=== PATIENT | male | born 1960 | race African-American/Black ===

== ENCOUNTER 2019-06-09 18:01 | Inpatient (IN) | payer OTHER ==
[~2019-06-09] VITALS: Ht 167.6 cm; Wt 75.3 kg
--- NOTE | ~2019-06-09 | O ---
[facility] [place] [address] OPERATIVE REPORT Name: JAHAIRA LOU Room #: 243-P ADM IN M.R.#: [id number] Admission: 06/09/19 Attend Phys: Sujit Miramontes MD Discharge: Date of : 60 Report #: [id number] THIS REPORT FOR: //name// CC: Sujit Naranjo DATE OF SERVICE: 06/12/2019 PROCEDURE: Removal of an intraaortic counterpulsation aortic balloon pump. INDICATIONS: No need for further support. BRIEF DESCRIPTION OF PROCEDURE: After informed consent was obtained, the balloon pump sutures were cut and removed. Suction was applied to the balloon and maximal contraction was identified. The balloon was then brought into the sheath as far as possible and utilizing steady pressure was then removed with 4 x 4 being utilized superior to the puncture site to obtain hemostasis after bleeding in both directions are permitted. No complications were noted. By: [id number] Thomas Bray MD /nt
[~2019-06-09 18:01] MED LIST: ACETAMINOPHEN325 M1; ALDACTONE25 MG; ASPIR 8181 MG PO; ATORVASTATIN CA40 MG PO; CARVEDILOL3.125 MG; CIPROFLOXACIN500 M1 PO; COREG6.25 MG PO; COUMADIN 5 MG TA5 M1; EFFIENT10 MG; FLOMAX0.4 MG PO; GLUCOPHAGE500 MG; IBUPROFEN 200200 M1; LANTUS; LANTUS100 UNIT/M SUBQ; LISINOPRIL5 MG; LISINOPRIL5 MG PO; METFORMIN HCL500 MG PO; MINIPRIN81 MG; NITROSTAT0.4 MG; NORCO 5-325 TA1 EACH PO; NOVOLOG100 UNIT/1; PRAVASTATIN SOD20 MG; ZOFRAN ODT4 MG PO
[2019-06-09 18:02] VITALS: BP 102/73
[2019-06-09 18:36] VITALS: BP 83/61
[2019-06-09 18:43] LABS: CALCIUM 8.8 mg/dL (8.5-10.1); CREATININE 1.6 mg/dL (0.7-1.3); HEMATOCRIT 49.9 % (42.0-52.0); HEMOGLOBIN 15.5 gm/dL (14.0-18.0); MCH 27.3 pg (26.0-34.0); PLATELET COUNT 225 thou/uL (150-400); POTASSIUM 4.8 mmol/L (3.5-5.1); RBC 5.67 mil/uL (4.50-6.00); WBC 21.4 thou/uL (4.0-11.0)
[2019-06-09 18:50] LABS: TROPONIN-I 0.17 ng/mL (<0.06)
[2019-06-09 19:09] LABS: ABSOLUTE NEUTROPHILS 11.8 thou/uL (1.4-8.2); METAMYELOCYTES 3 %
[2019-06-09 19:24] LABS: BE(vivo) -13.4 mmol/L (-2 to +3); HCO3 12.8 mmol/L (22.0-26.0); PCO2 31.1 mmHg (35.0-45.0); PO2 127.7 mmHg (80.0-100.0); pH 7.231 (7.360-7.450)
--- NOTE | 2019-06-09 22:03 | 2DMMODE ---
[facility] [address] [place] [address] 2 D/M-MODE ECHOCARDIOGRAM Name: JAHAIRA LOU Room #: 243-P ADM IN M.R.#: [id number] Admission: 06/09/19 Attend Phys: Sujit Miramontes MD Discharge: Date of : 60 Date of Service: 06/09/19 2203 Report #: [id number] THIS REPORT FOR: //name// APPROVED REPORT Study performed: 06/09/2019 20:48:31 EXAM: Comprehensive 2D, Doppler, and color-flow Echocardiogram Patient Location: Bedside Room #: 243 Status: stat, on-call BSA: 1.94 HR: 111 bpm BP: 132/94 mmHg Rhythm: Tachycardia Other Information Study Quality: Adequate Risk Factors: Cardiac Risk Factors: HTN Indications Aortic Valve Disease CAD Cardiomyopathy S/P Sudden Cardiac Pt. is on IABP 2D Dimensions IVSd: 11.22 (7-11mm) LVOT Diam: 19.00 (18-24mm) LVDd: 43.67 mm PWd: 10.52 (7-11mm) Ascending Ao: 31.12 (22-36mm) LVDs: 38.93 (25-40mm) Aortic Root: 28.03 mm LV Single Plane 4CH: 38.30 % LV Single Plane 2CH: 38.08 % Biplane EF: 34.4 % Volumes Left Atrial Volume (Systole) Single Plane 4CH: 38.91 mL Single Plane 2CH: 42.43 mL LA ESV Index: 23.00 mL/m2 Aortic Valve [facility] [address] [place] [address] 2 D/M-MODE ECHOCARDIOGRAM Name: JAHAIRA LOU Room #: 243-P [facility] IN ..#: [id number] Admission: 06/09/19 Attend Phys: Sujit Miramontes MD Discharge: Date of : 60 Date of Service: 06/09/19 2203 Report #: [id number] AoV Peak Guero.: 2.96 m/s AO Peak Gr.: 35.13 mmHg LVOT Max P.91 mmHg AO Mean Gr.: 25.91 mmHg LVOT Mean P.83 mmHg AO V2 Mean: 2.51 m/s LVOT Max V: 0.64 m/s AO V2 VTI: 64.73 cm LVOT Mean V: 0.43 m/s CHERELLE (VTI): 0.42 cm2 LVOT V1 VTI: 9.75 cm CHERELLE Vmax: 0.60 cm2 SV (LVOT): 27.02 mL Tricuspid Valve RAP Estimate: 7.00 mmHg Left Ventricle Left ventricle is grossly normal size. There is global hypokinesis of the left ventricle. Borderline concentric left ventricular hypertrophy. Left ventricular systolic function is severely decreased. LVEF is 30-35%. This study is not technically sufficient to allow evaluation of the LV diastolic function. Right Ventricle Right ventricle is mildly dilated. Right ventricle is hypokinetic. Atria The left atrium size is normal. The right atrium size is normal. Aortic Valve Aortic valve is calcified. Peak aortic valve gradient is 35 mmHg and the mean gradient is 26 mmHg. The calculated aortic valve area is 0.6 cm2. at least aortic stenosis. decreased lvef may affect accuracy Mitral Valve There is mitral annular calcification. Trace to mild mitral regurgitation. No evidence of mitral valve stenosis. Tricuspid Valve The tricuspid valve is normal in structure. Trace to mild tricuspid regurgitation. Unable to assess PA pressure. Pulmonic Valve The pulmonary valve is normal in structure. There is no pulmonic valvular regurgitation. [place] [id number] 2 D/M-MODE ECHOCARDIOGRAM Name: JAHAIRA LOU Room #: 243-P ADM IN M.R.#: [id number] Admission: 06/09/19 Attend Phys: Sujit Miramontes MD Discharge: Date of : 60 Date of Service: 06/09/19 220 Report #: [id number] The aortic root is normal in size. The ascending aorta is normal in size. IVC is normal in size and collapses <50% with inspiration. Patient is on a ventilator. Pericardium There is no pericardial effusion. <Conclusion> Left ventricle is grossly normal size. LVEF is 30-35%. There is global hypokinesis of the left ventricle. Right ventricle is mildly dilated. Right ventricle is hypokinetic. Aortic valve is calcified. Peak aortic valve gradient is 35 mmHg and the mean gradient is 26 mmHg. The calculated aortic valve area is 0.6 cm2. at least aortic stenosis. decreased lvef may affect accuracy There is mitral annular calcification. Trace to mild mitral regurgitation. The tricuspid valve is normal in structure. Trace to mild tricuspid regurgitation. Unable to assess PA pressure. The pulmonary valve is normal in structure. There is no pericardial effusion. <ELECTRONICALLY SIGNED> By: Thomas Bray MD 06/09/192202 02 02 Thomas Bray MD /INF
[2019-06-09 22:15] LABS: HCO3 16.5 mmol/L (22.0-26.0); PCO2 38.4 mmHg (35.0-45.0); PO2 78.9 mmHg (80.0-100.0); sO2 93.8 % (92.0-98.0)
[2019-06-09 22:17] LABS: HEMATOCRIT 45.2 % (42.0-52.0); HEMOGLOBIN 14.3 gm/dL (14.0-18.0); MCH 27.1 pg (26.0-34.0); MCHC 31.7 g/dL (28.0-37.0); MCV 85.6 fL (80.0-100.0); RBC 5.28 mil/uL (4.50-6.00); RDW 14.4 % (10.5-14.5); WBC 14.3 thou/uL (4.0-11.0)
[2019-06-09 22:36] LABS: INR 1.1
[2019-06-09 23:29] LABS: ALBUMIN 3.4 g/dL (3.4-5.0); CALCIUM 7.1 mg/dL (8.5-10.1); CREATININE 1.6 mg/dL (0.7-1.3); MAGNESIUM 1.2 mg/dL (1.8-2.4); POTASSIUM 4.3 mmol/L (3.5-5.1); TOTAL PROTEIN 6.5 g/dL (6.4-8.2)
[2019-06-09 23:41] LABS: TOTAL BILIRUBIN 1.3 mg/dL (<0.1-1.0)
[2019-06-10] VITALS (10 sets, daily range): BP systolic 123–137; BP diastolic 66–89
[2019-06-10 00:11] LABS: FIBRINOGEN 195.4 mg/dL (210-360)
[2019-06-10 00:19] LABS: D-DIMER 26.68 ug/mLFEU (0.19-0.50)
[2019-06-10 05:28] LABS: BE(vivo) -11.7 mmol/L (-2 to +3); HCO3 17.3 mmol/L (22.0-26.0); PCO2 50.7 mmHg (35.0-45.0); PO2 99.1 mmHg (80.0-100.0); sO2 95.5 % (92.0-98.0)
[2019-06-10 05:44] LABS: ABSOLUTE NEUTROPHILS 11.5 thou/uL (1.4-8.2); BASOPHILS 0.2 % (0.0-2.0); EOSINOPHILS 0.1 % (0.0-3.0); HEMATOCRIT 42.7 % (42.0-52.0); HEMOGLOBIN 13.5 gm/dL (14.0-18.0); LYMPHOCYTES 16.9 % (24.0-44.0); MCHC 31.7 g/dL (28.0-37.0); MCV 85.2 fL (80.0-100.0); MONOCYTES 4.4 % (1.0-8.0); PLATELET COUNT 193 thou/uL (150-400); POLYS 78.4 % (36.0-66.0); RBC 5.01 mil/uL (4.50-6.00); RDW 14.7 % (10.5-14.5); WBC 14.7 thou/uL (4.0-11.0)
[2019-06-10 05:49] LABS: INR 1.1
[2019-06-10 05:51] LABS: APTT 82.1 Seconds (24.5-32.8); CALCIUM 7.3 mg/dL (8.5-10.1); CREATININE 2.1 mg/dL (0.7-1.3); MAGNESIUM 2.5 mg/dL (1.8-2.4)
[2019-06-10 05:53] LABS: POTASSIUM 2.8 mmol/L (3.5-5.1); TROPONIN-I 23.74 ng/mL (<0.06)
[2019-06-10 07:57] LABS: BE(vivo) -7.7 mmol/L (-2 to +3); HCO3 19.2 mmol/L (22.0-26.0); PCO2 44.1 mmHg (35.0-45.0); PO2 180.2 mmHg (80.0-100.0)
[2019-06-10 08:02] LABS: pH 7.257 (7.360-7.450)
--- NOTE | 2019-06-10 09:30 | EKG ---
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: : 1960 Requested By: Elliott Walker Order Number: [id number] MD: Warren Luu Measurements Intervals [place]ont Rate: 102 P: 63 VT: 184 QRS: 68 QRSD: 147 T: 79 QT: 351 QTc: 458 Interpretive Statements Sinus tachycardia Inferior and lateral injury pattern Poor R wave progression Compared to ECG 05/25/2011 07:35:38 ST segment elevation is similar Electronically Signed On 06-10-2019 9:30:11 CDT by Warren Luu [email or web address] <ELECTRONICALLY SIGNED> By: Warren Luu MD, [facility] 06/10/19 0930 00 00 Warren Luu MD, [facility] /EPI
[2019-06-10 12:20] LABS: ABSOLUTE NEUTROPHILS 12.3 thou/uL (1.4-8.2); BASOPHILS 0.8 % (0.0-2.0); HEMATOCRIT 41.3 % (42.0-52.0); HEMOGLOBIN 13.5 gm/dL (14.0-18.0); LYMPHOCYTES 13.6 % (24.0-44.0); MCH 27.5 pg (26.0-34.0); MCHC 32.7 g/dL (28.0-37.0); MCV 83.9 fL (80.0-100.0); MONOCYTES 5.2 % (1.0-8.0); PLATELET COUNT 172 thou/uL (150-400); POLYS 80.4 % (36.0-66.0); RBC 4.93 mil/uL (4.50-6.00); RDW 14.2 % (10.5-14.5); WBC 15.3 thou/uL (4.0-11.0)
[2019-06-10 12:27] LABS: INR 1.1; PROTIME 11.4 Seconds (9.3-11.4)
[2019-06-10 12:30] LABS: CALCIUM 7.4 mg/dL (8.5-10.1); CREATININE 2.1 mg/dL (0.7-1.3); MAGNESIUM 2.3 mg/dL (1.8-2.4)
[2019-06-10 12:33] LABS: TROPONIN-I 21.36 ng/mL (<0.06)
[2019-06-10 12:44] LABS: APTT 104.2 Seconds (24.5-32.8)
[2019-06-10 18:53] LABS: ABSOLUTE NEUTROPHILS 10.6 thou/uL (1.4-8.2); BASOPHILS 0.2 % (0.0-2.0); EOSINOPHILS 0.1 % (0.0-3.0); HEMOGLOBIN 13.1 gm/dL (14.0-18.0); MCH 27.3 pg (26.0-34.0); MCHC 32.9 g/dL (28.0-37.0); MCV 83.1 fL (80.0-100.0); MONOCYTES 5.7 % (1.0-8.0); PLATELET COUNT 143 thou/uL (150-400); RBC 4.81 mil/uL (4.50-6.00); RDW 14.6 % (10.5-14.5)
[2019-06-10 19:05] LABS: CALCIUM 7.5 mg/dL (8.5-10.1); MAGNESIUM 2.2 mg/dL (1.8-2.4)
[2019-06-10 19:06] LABS: POTASSIUM 2.4 mmol/L (3.5-5.1); TROPONIN-I 14.37 ng/mL (<0.06)
[2019-06-10 19:13] LABS: APTT 74.5 Seconds (24.5-32.8); INR 1.1; PROTIME 11.4 Seconds (9.3-11.4)
[2019-06-11 05:21] LABS: BE(vivo) -3.7 mmol/L (-2 to +3); HCO3 18.1 mmol/L (22.0-26.0); PCO2 24.7 mmHg (35.0-45.0); pH 7.483 (7.360-7.450); sO2 99.6 % (92.0-98.0)
[2019-06-11 05:23] LABS: HEMATOCRIT 37.1 % (42.0-52.0); HEMOGLOBIN 12.5 gm/dL (14.0-18.0); MCH 27.8 pg (26.0-34.0); MCHC 33.7 g/dL (28.0-37.0); MCV 82.5 fL (80.0-100.0); RBC 4.49 mil/uL (4.50-6.00); RDW 14.4 % (10.5-14.5); WBC 10.5 thou/uL (4.0-11.0)
[2019-06-11 05:29] LABS: CALCIUM 7.4 mg/dL (8.5-10.1); CREATININE 1.8 mg/dL (0.7-1.3); POTASSIUM 4.9 mmol/L (3.5-5.1)
[2019-06-11 07:41] LABS: ALBUMIN 2.8 g/dL (3.4-5.0); DIRECT BILIRUBIN 0.5 mg/dL (<0.1-0.3); TOTAL BILIRUBIN 1.8 mg/dL (<0.1-1.0); TOTAL PROTEIN 5.2 g/dL (6.4-8.2)
[2019-06-11 07:47] LABS: APTT 79.7 Seconds (24.5-32.8); D-DIMER 2.08 ug/mLFEU (0.19-0.50)
[2019-06-11 07:54] LABS: ABSOLUTE RETIC COUNT 0.0462 10^6/uL; OBSERVED RETIC COUNT 1.03 % (0.6-2.6)
[2019-06-11 14:28] LABS: INR 1.2; PROTIME 12.2 Seconds (9.3-11.4)
[2019-06-11 14:29] LABS: APTT 41.4 Seconds (24.5-32.8)
[2019-06-12] VITALS (11 sets, daily range): BP systolic 124–154; BP diastolic 87–115
[2019-06-12 05:40] LABS: HEMATOCRIT 32.8 % (42.0-52.0); HEMOGLOBIN 10.9 gm/dL (14.0-18.0); MCH 27.5 pg (26.0-34.0); MCHC 33.2 g/dL (28.0-37.0); RBC 3.95 mil/uL (4.50-6.00); RDW 14.7 % (10.5-14.5); WBC 10.8 thou/uL (4.0-11.0)
[2019-06-12 06:02] LABS: CALCIUM 7.3 mg/dL (8.5-10.1); CREATININE 1.6 mg/dL (0.7-1.3)
--- NOTE | 2019-06-12 15:14 | CATHLAB ---
[facility] [address] [address] INVASIVE PROCEDURE REPORT Name: JAHAIRA LOU Room #: 243-P ADM IN M.R.#: [id number] Admission: 06/09/19 Attend Phys: Sujit Miramontes MD Discharge: Date of : 60 Date of Service: 06/12/19 1513 Report #: [id number] THIS REPORT FOR: //name// APPROVED REPORT Study performed: 06/09/2019 18:30:28 Patient Details Patient Status: ED Room #: The patient is a 58 year-old male Event Personnel Thomas Bray Refuse And Recycling Worker, Claudio Simpson RN RN, Alexandrea Garcia RTR, COMIC ILLUSTRATOR Monitor, Sameer Richards RTR Scrub Procedures Performed Art Access - R femoral artery* Carlo Access - R femoral vein Coronary Angiography Only [id number] [place] IABP Placement 1006855 IABPI, supervision of a cardiac arrest" code" Indication Arrhythmia, STEMI (>0 to less than or equal to 6 hours) Risk Factors Coronary Artery DiseaseHypertension, Diabetes Procedure Narrative The Right Groin^ was infiltrated with 1% Lidocaine subcutaneous anesthesia. A PINNACLE 6FR Sheath #[id number] sheath was inserted into the RFA. Coronary angiography was performed using coronary diagnostic catheters. The right coronary system was accessed and visualized with a LAUNCHER 6FR JR 4 #[id number] catheter. The left coronary system was accessed and visualized with a JL4 catheter. 8FR 40CC INTRA-AORTIC BALLOON PUMP INTRODUCED THROUGH RIGHT FEMORAL ARTERY Intraoperative Conscious Sedation No sedation given. Fluoro Time: 9.16 minutes Dose: DAP 7660.80 cGycm2 930 mGy Contrast Type and Amount: Omnipaque 50 ml Coronary Angiography The patient's coronary anatomy is right dominant. [facility] [address] [place] [address] INVASIVE PROCEDURE REPORT Name: JAHAIRA LOU Room #: [facility] IN M.R.#: [id number] Admission: 06/09/19 Attend Phys: Sujit Miramontes MD Discharge: Date of : 60 Date of Service: 06/12/19 1513 Report #: [id number] Diagnostic Cath Left Main Large calibered normal origin and tapers rapidly and bifurcates left anterior descending left circumflex and the distal taper is eccentric of under 50%. There is evidence of significant calcification LAD Diminutive caliber type II vessel has at least moderate proximal lesions noted. He has diffuse disease as it courses towards the apex in the anterior interventricular sulcus. No high-grade obstructive lesions are noted. Diagonal 1 Moderate caliber vessel coursing on the anterolateral wall with intraluminal irregularities noted without high-grade obstructive lesions but the entire vessel clearly has diffuse disease Circumflex Diminutive caliber vessel heavily calcified proximally. Numerous locations within the circumflex proper and first marginal branch with have high-grade lesions. The vessels unfortunately are less than 1 mm in diameter in closer to half a millimeter in diameter. OM1 Diminutive vessel diffusely diseased with focal high-grade lesions noted. The vessel is less than 1 mm in diameter Right Coronary Total chronic occlusion proximally with distal posterior circulation fed via left to right collaterals Left Ventriculography Left Ventriculography was not performed. Hemodynamics The aortic pressure is 96/59 mmHg with a mean of 75 mmHg. PCI Technique Lesion Percutaneous coronary intervention was performed on the proximal right coronary artery. A LAUNCHER 6FR JR 4 #[id number] Guide Catheter was used to engage the ostium. A Luge Wire (J) .014 X 182CM #[id number] Interventional Guidewire was used to cross the lesion. BALLOON DILATION Unable to cross lesion with .014 Luge (J) wire; Unable to cross lesion with .014 BMW 190cm wire; Unable to cross lesion with .014 Whisper wire 190cm; Unable to cross lesion with .014 Intuition 300cm wire Conclusion 1. Cardiogenic shock with severe diffuse disease involving a totally occluded RCA and at least moderate lesions in the LAD and left circumflex [facility] [address] [place] [address] INVASIVE PROCEDURE REPORT Name: JAHAIRA LOU Room #: 243-P [facility] IN M.R.#: [id number] Admission: 06/09/19 Attend Phys: Sujit Miramontes MD Discharge: Date of : 60 Date of Service: 06/12/19 1513 Report #: [id number] 2. Abnormal hemodynamics with need for catecholamine pressor support and CPR through out the case 3. Successful insertion of an intra-aortic balloon pump with augmentation to 105-110 mmHg Recommendations Continue current pressors and support. Consult neurology for neurologic status. <ELECTRONICALLY SIGNED> By: Thomas Bray MD 06/12/19 1513 1513 1513 Thomas Bray MD /INF
[2019-06-13] VITALS (24 sets, daily range): BP systolic 100–140; BP diastolic 69–117
[2019-06-13 05:23] LABS: HEMATOCRIT 31.4 % (42.0-52.0); HEMOGLOBIN 10.5 gm/dL (14.0-18.0); MCH 27.8 pg (26.0-34.0); MCHC 33.3 g/dL (28.0-37.0); MCV 83.4 fL (80.0-100.0); RBC 3.77 mil/uL (4.50-6.00); RDW 14.8 % (10.5-14.5); WBC 10.7 thou/uL (4.0-11.0)
[2019-06-13 05:31] LABS: CALCIUM 7.9 mg/dL (8.5-10.1); CREATININE 1.5 mg/dL (0.7-1.3); POTASSIUM 5.5 mmol/L (3.5-5.1)
[2019-06-13 13:47] LABS: BE(vivo) -6.3 mmol/L (-2 to +3); HCO3 17.4 mmol/L (22.0-26.0); PCO2 28.9 mmHg (35.0-45.0); PO2 56.8 mmHg (80.0-100.0); pH 7.398 (7.360-7.450); sO2 90.1 % (92.0-98.0)
[2019-06-14] VITALS (23 sets, daily range): BP systolic 98–136; BP diastolic 71–105
[2019-06-14 05:17] LABS: BE(vivo) -8.9 mmol/L (-2 to +3); HCO3 15.7 mmol/L (22.0-26.0); PO2 100.5 mmHg (80.0-100.0); pH 7.337 (7.360-7.450); sO2 97.3 % (92.0-98.0)
[2019-06-14 05:47] LABS: HEMATOCRIT 31.5 % (42.0-52.0); HEMOGLOBIN 10.4 gm/dL (14.0-18.0); MCH 27.7 pg (26.0-34.0); MCV 84.1 fL (80.0-100.0); RBC 3.75 mil/uL (4.50-6.00); RDW 14.7 % (10.5-14.5); WBC 10.2 thou/uL (4.0-11.0)
[2019-06-14 06:05] LABS: ALBUMIN 2.6 g/dL (3.4-5.0); CALCIUM 8.2 mg/dL (8.5-10.1); CREATININE 1.4 mg/dL (0.7-1.3); POTASSIUM 4.9 mmol/L (3.5-5.1); TOTAL BILIRUBIN 1.3 mg/dL (<0.1-1.0)
[2019-06-14 09:18] LABS: URINE BLOOD 3+ (Negative); URINE CLARITY CLEAR; URINE COLOR YELLOW; URINE GLUCOSE-RANDOM* NEGATIVE (Negative); URINE KETONES 3+ (Negative); URINE LEUKOCYTES NEGATIVE (Negative); URINE NITRITE NEGATIVE (Negative); URINE PROTEIN (DIPSTICK) 1+ (Negative); URINE SPECIFIC GRAVITY >= 1.030 (1.005-1.035); URINE UROBILINOGEN 0.2 E.U./dl (0.2-1.0)
[2019-06-14 09:22] LABS: ICTOTEST (BILI CONFIRMATORY) Negative (Negative); URINE BILIRUBIN NEGATIVE (Negative)
[2019-06-14 09:24] LABS: SQUAMOUS None Seen /LPF (0-3); URINE RBC >20 Many /HPF (0-2); URINE WBC 0-5 Rare /HPF (0-5)
[2019-06-14 09:25] LABS: CASTS None Seen /LPF (None Seen); CRYSTALS None Seen /LPF (None Seen)
[2019-06-15] VITALS (23 sets, daily range): BP systolic 108–132; BP diastolic 65–88
[2019-06-15 05:17] LABS: BE(vivo) -8.3 mmol/L (-2 to +3); HCO3 15.6 mmol/L (22.0-26.0); PCO2 27.4 mmHg (35.0-45.0); PO2 85.8 mmHg (80.0-100.0); pH 7.374 (7.360-7.450)
[2019-06-15 05:18] LABS: sO2 96.5 % (92.0-98.0)
[2019-06-15 05:30] LABS: HEMATOCRIT 27.5 % (42.0-52.0); HEMOGLOBIN 9.4 gm/dL (14.0-18.0); MCH 28.6 pg (26.0-34.0); MCHC 34.3 g/dL (28.0-37.0); MCV 83.4 fL (80.0-100.0); RBC 3.3 mil/uL (4.50-6.00); RDW 14.9 % (10.5-14.5); WBC 8.4 thou/uL (4.0-11.0)
[2019-06-15 05:43] LABS: CALCIUM 8.9 mg/dL (8.5-10.1); CREATININE 1.3 mg/dL (0.7-1.3); POTASSIUM 4.7 mmol/L (3.5-5.1)
[2019-06-16] VITALS (23 sets, daily range): BP systolic 111–150; BP diastolic 64–96
[2019-06-16 04:17] LABS: ABSOLUTE NEUTROPHILS 8.4 thou/uL (1.4-8.2); BASOPHILS 0.6 % (0.0-2.0); EOSINOPHILS 2.7 % (0.0-3.0); HEMATOCRIT 26.5 % (42.0-52.0); LYMPHOCYTES 8.7 % (24.0-44.0); MCH 28.3 pg (26.0-34.0); MCHC 33.9 g/dL (28.0-37.0); MCV 83.6 fL (80.0-100.0); MONOCYTES 6.2 % (1.0-8.0); PLATELET COUNT 223 thou/uL (150-400); POLYS 81.8 % (36.0-66.0); RBC 3.17 mil/uL (4.50-6.00); RDW 14.7 % (10.5-14.5); WBC 10.3 thou/uL (4.0-11.0)
[2019-06-16 04:26] LABS: CALCIUM 9.1 mg/dL (8.5-10.1); CREATININE 1.3 mg/dL (0.7-1.3); POTASSIUM 4.4 mmol/L (3.5-5.1)
[2019-06-16 04:45] LABS: BE(vivo) -3.1 mmol/L (-2 to +3); HCO3 20.3 mmol/L (22.0-26.0); PCO2 30.7 mmHg (35.0-45.0); PO2 147.4 mmHg (80.0-100.0); pH 7.438 (7.360-7.450)
--- NOTE | 2019-06-16 12:44 | HC ---
[facility] [address] [place] [address] CONSULTATION Name: JAHAIRA LOU Room #: 243-P ADM IN M.R.#: [id number] Admission: 06/09/19 Attend Phys: Sujit Miramontes MD Discharge: Date of : 60 Report #: [id number] THIS REPORT FOR: //name// CC: Sujit Naranjo DATE OF SERVICE: 06/15/2019 INFECTIOUS DISEASE CONSULTATION REASON FOR CONSULTATION: I was asked to evaluate concerning fever post-cardiac arrest. HISTORY OF PRESENT ILLNESS: The patient is a 58 year old with underlying history of coronary artery disease, hypertension, hyperlipidemia and diabetes, who presents to the Emergency Room on 06/09/2019 after being found down in his driveway by his family. Unknown how long he had been down. EMS was called and he was found to be in ventricular fibrillation. He was resuscitated. He was found to have a STEMI and was taken to the recyclable materials distributor. While in the lab, he had further cardiac arrest and required vasopressors and intraaortic balloon pump. He was placed on the hypothermic protocol. He did have episode of seizure. No intervention was able to be performed on his coronary arteries. He had multiple stents already in place and a chronically occluded RCA. Subsequently, he remains on the ventilator now down to 40%. Moderate amount of tracheal secretions. Has developed a progressive right lower lobe infiltrate. Sputum cultures have revealed methicillin-susceptible Staph aureus. Blood cultures have remained negative. He has had no further seizure activity. He has had a significant anoxic encephalopathy as noted on his EEG. CT scan has showed no localizing cerebral infarct. The patient has central venous catheter in place. He has an indwelling Cedeno catheter in place. He is now on cooling blanket for temperature up to 101.5 degrees. Leading up to this event, he was feeling well and was very active, worked on a daily basis. ALLERGIES: None known. MEDICATIONS: As noted on his MAR including vancomycin and Zosyn. Other medications as noted on his MAR. PAST MEDICAL AND SURGICAL HISTORY: Diabetes, coronary artery disease, hypertension, coronary stents, chronic lung disease, COPD, hyperlipidemia, herniorrhaphy, and tonsillectomy. SOCIAL HISTORY: He is a nonsmoker, no significant alcohol intake currently. Previously was a significant drinker. No known HIV risk factors. No [facility] [address] [place] [address] CONSULTATION Name: JAHAIRA LOU Room #: [address] [place] [address] IN .R.#: [id number] Admission: 06/09/19 Attend Phys: Sujit Miramontes MD Discharge: Date of : 60 Report #: [id number] tuberculosis exposure. REVIEW OF SYSTEMS: 10-point review of systems is negative other than what has been described above. PHYSICAL EXAMINATION: VITAL SIGNS: Temperature is now normal. Vital signs were stable, on FiO2 of 40%, he was unresponsive. Pupils are equal, round and reactive to light. He did have a gag reflex. Unable to move his extremities. He did withdraw to pain. SKIN: With bruising to both knees. No palpable adenopathy. EYES: Without scleral icterus. MOUTH: Without mucositis. Orally intubated. NECK: Supple. LUNGS: Coarse breath sounds in the right posterior base. HEART: Regular without appreciable murmur, gallop or rub. ABDOMEN: Soft, nontender, no hepatosplenomegaly or mass. GENITOURINARY: External genitalia without lesion, had indwelling Cedeno catheter. RECTAL: Not performed. NEUROLOGIC: As noted above with associated encephalopathy. LABORATORY STUDIES: Sodium 140, potassium 4.7, creatinine 1.3, bicarbonate of 18. Hemoglobin 9.4, WBC 8.4, platelet count 156,000. Chest x-ray with right lower lobe infiltrate. Liver function tests, bilirubin 1.3, ALT 91. Urinalysis, rbc's and bacteria. Blood cultures negative to date. CT of the head showed left maxillary sinusitis. IMPRESSION: 1. 58 year old status post out of hospital cardiac arrest, now 6 days into his resuscitation. Has fever, source of which would include pneumonia versus urinary tract infection versus drug versus central due to his anoxic encephalopathy. 2. Acute hypoxic respiratory failure status post cardiac arrest VFib. 3. Seizure. 4. Coronary artery disease. 5. Metabolic acidosis 6. Acute kidney injury, improved. 7. Shock liver, improved. RECOMMENDATIONS: We will continue antibiotic for Staph aureus and aspiration. Continue ventilatory support. Follow temperatures for now and await repeat cultures. I have discussed in detail with nursing staff regarding plan of care. Also discussed with his family at the bedside. [address] [address] CONSULTATION Name: JAHAIRA LOU Room #: 243-P ADM IN M.R.#: [id number] Admission: 06/09/19 Attend Phys: Sujit Miramontes MD Discharge: Date of : 60 Report #: [id number] Time 60 minutes, critical care. <ELECTRONICALLY SIGNED> By: Joey Hoover MD 06/16/19 1244 1602 0044 Joey Hoover MD /nt
[2019-06-17] VITALS (24 sets, daily range): BP systolic 116–149; BP diastolic 70–100
[2019-06-17 05:53] LABS: CALCIUM 9.4 mg/dL (8.5-10.1); CREATININE 1.3 mg/dL (0.7-1.3); POTASSIUM 4.2 mmol/L (3.5-5.1)
[2019-06-18] VITALS (22 sets, daily range): BP systolic 118–158; BP diastolic 78–102
[2019-06-18 05:03] LABS: BE(vivo) -1.3 mmol/L (-2 to +3); HCO3 22.4 mmol/L (22.0-26.0); PCO2 33.4 mmHg (35.0-45.0); PO2 81.7 mmHg (80.0-100.0); pH 7.444 (7.360-7.450); sO2 96.5 % (92.0-98.0)
[2019-06-18 05:27] LABS: ABSOLUTE NEUTROPHILS 10.8 thou/uL (1.4-8.2); BASOPHILS 0.3 % (0.0-2.0); EOSINOPHILS 0.8 % (0.0-3.0); HEMATOCRIT 26.9 % (42.0-52.0); HEMOGLOBIN 8.7 gm/dL (14.0-18.0); LYMPHOCYTES 7.2 % (24.0-44.0); MCHC 32.5 g/dL (28.0-37.0); MCV 83.2 fL (80.0-100.0); MONOCYTES 8.5 % (1.0-8.0); PLATELET COUNT 297 thou/uL (150-400); POLYS 83.2 % (36.0-66.0); RBC 3.24 mil/uL (4.50-6.00); RDW 14.7 % (10.5-14.5)
[2019-06-18 05:31] LABS: CALCIUM 9.3 mg/dL (8.5-10.1); CREATININE 1.3 mg/dL (0.7-1.3); POTASSIUM 4.2 mmol/L (3.5-5.1); TOTAL BILIRUBIN 1.3 mg/dL (<0.1-1.0)
[2019-06-19] VITALS (23 sets, daily range): BP systolic 119–144; BP diastolic 74–98
--- NOTE | 2019-06-19 08:40 | HC ---
[facility] [address] [address] CONSULTATION Name: JAHAIRA LOU Room #: [facility]-P ADM IN M.R.#: [id number] Admission: 06/09/19 Attend Phys: Sujit Miramontes MD Discharge: Date of : 60 Report #: [id number] THIS REPORT FOR: //name// CC: Sujit Naranjo DATE OF SERVICE: 06/10/2019 HISTORY OF PRESENT ILLNESS: This is a 58-year-old male patient, who was evaluated by me to prognosticate the patient for hypoxic encephalopathy. The patient was discussed with the nurses. The patient was discussed with Dr. Miramontes in detail. The patient was admitted out of hospital cardiac, it is not clear how long he has been out and down before he was found. REVIEW OF SYSTEMS: Indicates that this patient had coronary artery disease in the past. He was reevaluated by Cardiology during this admission. He has a history of dyslipidemia and diabetes mellitus. It is not certain how much control those are. He apparently does not have any history of stroke, the best I can understand. He is having some episodes, which may be posturing. During my examination, he did not have any episode. He is on propofol and Keppra. His EEG is being done for the time being. A 14-point review of system was carried out and it is as described above. PAST MEDICAL HISTORY: Positive for coronary artery disease. FAMILY HISTORY: Negative for any congenital epilepsy. SOCIAL HISTORY: He is and I talked to his . He drinks alcohol only occasionally. PHYSICAL EXAMINATION: Indicates the patient is unresponsive. He did not have any response, but he is also sedated. He has no reflexes. His right pupil does appear to be slightly reactive. I did not see any reaction on the left pupil. Even in the right pupil reaction is pretty slow and somewhat questionable. He is intubated. Rest of the exam is not possible. Blood pressure is 123/76; pulse is 114 and it has fluctuated; temperature, he is on hypothermia protocol. IMPRESSION: 1. Cardiac arrest. 2. He needs further evaluation to determine the extent of hypoxic encephalopathy. I discussed that aspect with the and indicated to her that it will take some time to determine that with accuracy. 3. He is already on propofol and Keppra. The episode appeared unlikely to be seizures. They can be posturing. They can be myoclonus, which are difficult to treat. I will check an EEG once it is done. [facility] [address] [place] [address] CONSULTATION Name: JAHAIRA LOU Room #: 243-P ADM IN M.R.#: [id number] Admission: 06/09/19 Attend Phys: Sujit Miramontes MD Discharge: Date of : 60 Report #: [id number] This patient needs a CT scan of the head to exclude any rare intracranial causes, which can cause or contribute to the patient's symptoms. The rest is most likely because of cardiac causes, but an outside chance of neurological etiology need to be excluded. I discussed that aspect with the and Dr. Miramontes. He is on hypothermia protocol. I discussed options with the patient's and discussed the pros and cons of those options. She is agreeable to proceed with a CT scan tomorrow after he is off the hypothermia protocol. He also appeared to have some significant abnormalities in the blood workup indicating diffuse hypoxia and some electrolyte imbalances including low potassium. Thank you very much for this referral and if you have any question, please feel free to contact me. <ELECTRONICALLY SIGNED> By: Asher Ashley MD 06/19/19 0840 0958 0327 Asher Ashley MD /nt
--- NOTE | 2019-06-19 08:41 | EEG ---
[facility] [place] [address] [place] [address] ELECTROENCEPHALOGRAM Name: JAHAIRA LOU Room #: 243-P ADM IN M.R.#: [id number] Admission: 06/09/19 Attend Phys: Sujit Miramontes MD Discharge: Date of : 60 Report #: [id number] THIS REPORT FOR: //name// CC: Sujit Plunkettsalvatore DATE OF SERVICE: 06/18/2019 This patient's EEG is repeated after taking off sedation and it was compared with yesterday. EEG was done by placing the electrodes by standard 10-20 system of electrode placement. Background activity does go about 6-7 Hz and 15 microvolt. A lot of artifact is present because the patient was off sedation and he continues to move. He also has eye movement artifact. Photic stimulation was unremarkable. This EEG is better than yesterday, but still not back to the level it was at the second EEG. IMPRESSION: This is an abnormal EEG, which will be consistent with a diagnosis of encephalopathy. This patient's EEG is somewhat better than yesterday, but still demonstrate pretty significant encephalopathy. I will suggest monitoring the patient with serial EEG over a period of time to see if the EEG continued to improve or deteriorate. No active epileptiform activity was noticed during this record. <ELECTRONICALLY SIGNED> By: Asher Ashley MD 06/19/19 0841 1019 1045 MD sarai Martin
--- NOTE | 2019-06-19 08:41 | EEG ---
[facility] [place] [address] [place] [address] ELECTROENCEPHALOGRAM Name: JAHAIRA LOU Room #: 243-P ADM IN M.R.#: [id number] Admission: 06/09/19 Attend Phys: Sujit Miramontes MD Discharge: Date of : 60 Report #: [id number] THIS REPORT FOR: //name// CC: Sujit Plunkettsalvatore DATE OF SERVICE: 06/17/2019 This patient is post-cardiac arrest. EEG was done for comparison with the last EEG. EEG was done by placing the electrodes by standard 10-20 system of electrode placement. Both referential and sequential montages were used for recording. The patient's EEG demonstrated a background activity of about 5 Hz and 20 microvolt. Photic stimulation is unremarkable. This EEG is slower and poorly formed as compared to the last EEG, but the patient is on propofol. No active epileptiform activity was noticed. IMPRESSION: This patient's EEG is significantly slower and poorly formed compared to his last EEG. No active epileptiform activity was noticed. It might be desirable to repeat the EEG without propofol if possible to see how much slowing is because of propofol and how much it is because of deteriorating encephalopathy. Thank you very much for this referral. <ELECTRONICALLY SIGNED> By: Asher Ashley MD 06/19/19 0841 1559 1716 Asher Ashley MD /nt
--- NOTE | 2019-06-19 08:41 | EEG ---
[facility] [place] [address] ELECTROENCEPHALOGRAM Name: JAHAIRA LOU Room #: 243-P ADM IN M.R.#: [id number] Admission: 06/09/19 Attend Phys: Sujit Miramontes MD Discharge: Date of : 60 Report #: [id number] THIS REPORT FOR: //name// CC: Sujit Naranjo DATE OF SERVICE: 06/13/2019 This repeat EEG is done for comparison. EEG was done by placing the electrode by standard 10-20 system of electrode placement. Both referential and sequential montages were used for recording. Background activity in this patient's EEG is about 8 Hz and 30 microvolt. Photic stimulation is unremarkable. No active epileptiform activity was noticed. IMPRESSION: This patient's EEG demonstrates significant improvement since the last EEG. It is still abnormal, but has improved since last time. <ELECTRONICALLY SIGNED> By: Asher Ashley MD 06/19/19 0841 1738 41 Asher Ashley MD /nt
--- NOTE | 2019-06-19 08:41 | EEG ---
[facility] [place] [address] ELECTROENCEPHALOGRAM Name: JAHAIRA LOU Room #: 243-P ADM IN M.R.#: [id number] Admission: 06/09/19 Attend Phys: Sujit Miramontes MD Discharge: Date of : 60 Report #: [id number] THIS REPORT FOR: //name// CC: Sujit Naranjo DATE OF SERVICE: 06/10/2019 This patient is being evaluated for cardiac arrest. EEG was done by placing the electrode by standard 10-20 system of electrode placement. Both referential and sequential montages were used for recording. Background activity is suppressed, but well-defined activity is present. Background is difficult to tell because it fluctuates, but it does appear to be going up to 5-6 Hz but most of the time it is much slower than that. No active epileptiform activity was noticed. Photic stimulation was unremarkable. IMPRESSION: This is an abnormal EEG because it is slow, disorganized and poorly formed. Well defined cortical activity is present, but no active epileptiform activity is present. Thank you very much for this referral. <ELECTRONICALLY SIGNED> By: Asher Ashley MD 06/19/19 [id number] Asher Ashley MD /nt
[2019-06-20] VITALS (39 sets, daily range): BP systolic 115–159; BP diastolic 76–111
[2019-06-20 05:37] LABS: HEMATOCRIT 26.7 % (42.0-52.0); MCH 27.8 pg (26.0-34.0); MCHC 33.6 g/dL (28.0-37.0); MCV 82.7 fL (80.0-100.0); RBC 3.23 mil/uL (4.50-6.00); RDW 14.4 % (10.5-14.5)
[2019-06-20 05:41] LABS: CALCIUM 8.9 mg/dL (8.5-10.1); CREATININE 1.2 mg/dL (0.7-1.3); MAGNESIUM 1.7 mg/dL (1.8-2.4); POTASSIUM 4.4 mmol/L (3.5-5.1)
[2019-06-21] VITALS (66 sets, daily range): BP systolic 114–158; BP diastolic 76–104
[2019-06-21 05:28] LABS: CALCIUM 8.9 mg/dL (8.5-10.1); CREATININE 1.5 mg/dL (0.7-1.3); MAGNESIUM 1.7 mg/dL (1.8-2.4); POTASSIUM 4.1 mmol/L (3.5-5.1)
[2019-06-21 05:34] LABS: HEMATOCRIT 26.4 % (42.0-52.0); HEMOGLOBIN 8.9 gm/dL (14.0-18.0); MCH 27.4 pg (26.0-34.0); MCHC 33.5 g/dL (28.0-37.0); MCV 81.7 fL (80.0-100.0); RBC 3.23 mil/uL (4.50-6.00); RDW 14.3 % (10.5-14.5); WBC 8.9 thou/uL (4.0-11.0)
[2019-06-22] VITALS (48 sets, daily range): BP systolic 114–162; BP diastolic 76–104
[2019-06-22 05:39] LABS: HEMATOCRIT 26.2 % (42.0-52.0); HEMOGLOBIN 8.7 gm/dL (14.0-18.0); MCH 27.6 pg (26.0-34.0); MCHC 33.4 g/dL (28.0-37.0); MCV 82.5 fL (80.0-100.0); RBC 3.17 mil/uL (4.50-6.00); RDW 14.8 % (10.5-14.5); WBC 8.7 thou/uL (4.0-11.0)
[2019-06-22 05:50] LABS: CALCIUM 8.8 mg/dL (8.5-10.1); CREATININE 1.3 mg/dL (0.7-1.3); MAGNESIUM 1.8 mg/dL (1.8-2.4); POTASSIUM 3.9 mmol/L (3.5-5.1)
[2019-06-23] VITALS (26 sets, daily range): BP systolic 109–153; BP diastolic 67–96
[2019-06-23 05:51] LABS: HEMATOCRIT 27.6 % (42.0-52.0); MCH 27.2 pg (26.0-34.0); MCHC 32.8 g/dL (28.0-37.0); MCV 83.1 fL (80.0-100.0); RBC 3.32 mil/uL (4.50-6.00); RDW 14.2 % (10.5-14.5); WBC 9.4 thou/uL (4.0-11.0)
[2019-06-23 05:55] LABS: CALCIUM 8.8 mg/dL (8.5-10.1); CREATININE 1.3 mg/dL (0.7-1.3); MAGNESIUM 1.9 mg/dL (1.8-2.4); POTASSIUM 3.9 mmol/L (3.5-5.1)
[2019-06-23 07:54] LABS: BE(vivo) 0.8 mmol/L (-2 to +3); HCO3 24.7 mmol/L (22.0-26.0); PCO2 36.6 mmHg (35.0-45.0); PO2 165.6 mmHg (80.0-100.0); pH 7.447 (7.360-7.450); sO2 99.2 % (92.0-98.0)
[2019-06-23 09:19] LABS: ALBUMIN 1.9 g/dL (3.4-5.0); DIRECT BILIRUBIN 0.3 mg/dL (<0.1-0.3); TOTAL BILIRUBIN 0.5 mg/dL (<0.1-1.0); TOTAL PROTEIN 7.1 g/dL (6.4-8.2)
[2019-06-23 11:28] LABS: URINE BILIRUBIN NEGATIVE (Negative); URINE BLOOD 1+ (Negative); URINE CLARITY CLEAR; URINE COLOR YELLOW; URINE GLUCOSE-RANDOM* 2+ (Negative); URINE KETONES NEGATIVE (Negative); URINE LEUKOCYTES-REFLEX NEGATIVE (Negative); URINE NITRITE-REFLEX NEGATIVE (Negative); URINE PROTEIN (DIPSTICK) NEGATIVE (Negative); URINE UROBILINOGEN 0.2 E.U./dl (0.2-1.0)
[2019-06-23 11:37] LABS: BACTERIA-REFLEX None Seen /HPF (None Seen); CASTS None Seen /LPF (None Seen); CRYSTALS None Seen /LPF (None Seen); SQUAMOUS None Seen /LPF (0-3); URINE RBC 0-2 Rare /HPF (0-2); URINE WBC-REFLEX None Seen /HPF (0-5)
[2019-06-24] VITALS (24 sets, daily range): BP systolic 115–155; BP diastolic 74–100
[2019-06-25] VITALS (18 sets, daily range): BP systolic 112–155; BP diastolic 84–102
[2019-06-25 06:25] LABS: CREATININE 1.3 mg/dL (0.7-1.3); POTASSIUM 3.9 mmol/L (3.5-5.1)
[2019-06-25] MEDS ORDERED: ACETYLCYST200 MG/1 M PO (14:47)
[2019-06-25] MEDS ORDERED: UNASYN 3 GM VIAL3 G1 IM (14:50)
== END 2019-06-25 17:31 | DRG 3 ==
LOC: ER 18:01 → EROBS 19:02 → ICU 19:02
PROVIDERS: Emergency Medicine; Internal Medicine; Internal Medicine Pulmonary Disease; Nurse Practitioner Gerontology; Pediatrics; Specialist; Surgery; ADMIT Internal Medicine
PROC: 0BH17EZ Insertion of Endotracheal Airway into Trachea, Via Natural or Artificial Opening (ICD-10-PCS; principal; 2019-06-09)
PROC: B41F1ZZ Fluoroscopy of Right Lower Extremity Arteries using Low Osmolar Contrast (ICD-10-PCS; principal; 2019-06-09)
PROC: 4A023N7 Measurement of Cardiac Sampling and Pressure, Left Heart, Percutaneous Approach (ICD-10-PCS; principal; 2019-06-09)
PROC: B2111ZZ Fluoroscopy of Multiple Coronary Arteries using Low Osmolar Contrast (ICD-10-PCS; principal; 2019-06-09)
PROC: 5A1955Z Respiratory Ventilation, Greater than 96 Consecutive Hours (ICD-10-PCS; principal; 2019-06-09)
PROC: 02703ZZ Dilation of Coronary Artery, One Artery, Percutaneous Approach (ICD-10-PCS; principal; 2019-06-09)
PROC: 02HV33Z Insertion of Infusion Device into Superior Vena Cava, Percutaneous Approach (ICD-10-PCS; principal; 2019-06-09)
PROC: 5A02210 Assistance with Cardiac Output using Balloon Pump, Continuous (ICD-10-PCS; principal; 2019-06-09)
PROC: 0B110F4 Bypass Trachea to Cutaneous with Tracheostomy Device, Open Approach (ICD-10-PCS; 2019-06-20)
PROC: 0DH63UZ Insertion of Feeding Device into Stomach, Percutaneous Approach (ICD-10-PCS; 2019-06-20)
DX: I21.11 ST elevation (STEMI) myocardial infarction involving right coronary artery (principal); J96.21 Acute and chronic respiratory failure with hypoxia; I46.9 Cardiac arrest, cause unspecified; G92 Toxic encephalopathy; K72.00 Acute and subacute hepatic failure without coma; J69.0 Pneumonitis due to inhalation of food and vomit; J15.211 Pneumonia due to Methicillin susceptible Staphylococcus aureus; N17.0 Acute kidney failure with tubular necrosis; I49.01 Ventricular fibrillation; J96.22 Acute and chronic respiratory failure with hypercapnia; E87.2 Acidosis; G93.1 Anoxic brain damage, not elsewhere classified; I10 Essential (primary) hypertension; G40.409 Other generalized epilepsy and epileptic syndromes, not intractable, without status epilepticus; N18.9 Chronic kidney disease, unspecified; E11.22 Type 2 diabetes mellitus with diabetic chronic kidney disease; R31.9 Hematuria, unspecified; G25.3 Myoclonus; I25.10 Atherosclerotic heart disease of native coronary artery without angina pectoris; I35.0 Nonrheumatic aortic (valve) stenosis; E11.65 Type 2 diabetes mellitus with hyperglycemia; E83.42 Hypomagnesemia; E78.5 Hyperlipidemia, unspecified; I25.2 Old myocardial infarction; Z95.5 Presence of coronary angioplasty implant and graft; Z79.4 Long term (current) use of insulin; Z79.82 Long term (current) use of aspirin; Z79.899 Other long term (current) drug therapy
CPT/HCPCS: 10078; 10203; 50101; 50386; 50403; 50517; 56525; 62110; 62900